=== PATIENT | male | born 1965 | race Caucasian/White ===

== ENCOUNTER → 2016-12-23 | Outpatient (CLI) | payer OTHER ==
--- NOTE | 2016-12-23 09:35 | CT ---
EXAMINATION TYPE: CT sinus wo con DATE OF EXAM: 12/23/2016 COMPARISON: NONE HISTORY: Chronic sinusitis CT DLP: 587.5 mGycm. Automated Exposure Control for Dose Reduction was Utilized. TECHNIQUE: CT scan of the sinuses is performed without contrast, axial images are obtained, coronal r eformatted images are also reviewed. FINDINGS: Visualized intracranial structures are unremarkable. The orbits appear normal. The mastoid air cells are unremarkable. There is complete opacification of the left maxillary sinus. There is calcified inspissated secretion s within the left maxillary sinus. The medial wall appears violated superiorly. The right maxillary s inus is unremarkable. There is minimal mucoperiosteal thickening involving the left anterior ethmoida l air cells. The sphenoidal sinuses are unremarkable. The frontal sinuses are unremarkable. The infun dibulum on the right is patent. That on the left is occluded. IMPRESSION: COMPLETE OPACIFICATION OF THE LEFT MAXILLARY SINUS WITH INSPISSATED SECRETIONS WITHIN SINUS AND VIOLA TION OF THE MEDIAL WALL OF THE SINUS. I COULD NOT EXCLUDE A MUCOCELE.
== END | disposition home or self-care (01) ==
LOC: RADCTMAIN 08:57
PROVIDERS: ATTEND Otolaryngology
DX: J34.89 Other specified disorders of nose and nasal sinuses (principal)
CPT/HCPCS: 70486